=== PATIENT | male | born 1940 | race Caucasian/White ===

== ENCOUNTER 2022-03-08 10:24 | Day surgery (SDC) | payer OTHER ==
[~2022-03-08] VITALS: Ht 177.8 cm; Wt 72.2 kg
[~2022-03-08 10:24] MED LIST: ALBU90OI INH; ASPI81EC PO; KETO.5OPSO BOTHEYES; LEVSOD50 PO; LISI20 PO; OCUFLOX5 M9 BOTHEYES; OMEP20ER PO; PRAV20 PO; PREDNISOLO15 MG/5 ML BOTHEYES; STIOLTO RESPIMAT4 GM INH; TAMS.4ER PO; TERB250 PO
--- NOTE | 2022-03-08 13:17 | NUR ---
03/08/22 1317 AMINA GUTIÉRREZ PT PULSE OX SHOW HR 32, RN CONNECTED 3 L EKG, HR 68
== END 2022-03-08 13:21 | disposition home or self-care (01) ==
LOC: ORSCSDS 10:24
PROVIDERS: Ophthalmology
PROC: 08RJ3JZ Replacement of Right Lens with Synthetic Substitute, Percutaneous Approach (ICD-10-PCS; principal; 2022-03-08 12:00)
DX: H25.13 Age-related nuclear cataract, bilateral (principal); I10 Essential (primary) hypertension; J44.9 Chronic obstructive pulmonary disease, unspecified; Z87.891 Personal history of nicotine dependence; Z79.899 Other long term (current) drug therapy
CPT/HCPCS: 82947; J2001; J2250; J3010; J3301; J7040; V2632

== ENCOUNTER 2022-03-24 10:50 | Day surgery (SDC) | payer OTHER ==
[~2022-03-24] VITALS: Ht 177.8 cm; Wt 70.9 kg
--- NOTE | 2022-03-24 11:19 | NUR ---
03/24/22 1119 Kelly Shelby TETRACAINE INSTILLED IN LEFT EYE AT 1113 PLED[address]T [address]ACED IN LEFT EYE AT 1117. BY [email or web address]
== END 2022-03-24 13:09 | disposition home or self-care (01) ==
LOC: ORSCSDS 10:50
PROVIDERS: Ophthalmology
PROC: 08RK3JZ Replacement of Left Lens with Synthetic Substitute, Percutaneous Approach (ICD-10-PCS; principal; 2022-03-24 12:30)
DX: H25.12 Age-related nuclear cataract, left eye (principal); H52.202 Unspecified astigmatism, left eye; I10 Essential (primary) hypertension; J44.9 Chronic obstructive pulmonary disease, unspecified; G47.33 Obstructive sleep apnea (adult) (pediatric); E03.9 Hypothyroidism, unspecified; K21.9 Gastro-esophageal reflux disease without esophagitis; Z99.81 Dependence on supplemental oxygen; F17.210 Nicotine dependence, cigarettes, uncomplicated; Z79.899 Other long term (current) drug therapy; E78.5 Hyperlipidemia, unspecified
CPT/HCPCS: 82947; J2001; J2250; J2704; J3010; J3301; J7040; V2632

== ENCOUNTER 2023-02-28 15:06 | Emergency (ER) | payer OTHER ==
[~2023-02-28] VITALS: Ht 167.6 cm; Wt 63.5 kg
[2023-02-28 15:51] LABS: BASOPHILS ABSOLUTE AUTO 0.01 K/mm3 (0.00-0.23); BASOPHILS PERCENT AUTO 0 % (0-2); EOSINOPHILS ABSOLUTE AUTO 0.49 K/mm3 (0.00-0.68); EOSINOPHILS PERCENT AUTO 7 % (0-6); Hematocrit 32.2 % (37.0-53.0); Hemoglobin 10.8 g/dL (13.5-17.5); IMMATURE GRAN ABSOLUTE AUTO 0.05 K/mm3 (0.00-0.10); IMMATURE GRAN PERCENT AUTO 1 % (0-1); LYMPHOCYTES ABSOLUTE AUTO 0.75 K/mm3 (0.84-5.20); LYMPHOCYTES PERCENT AUTO 11 % (21-46); MONOCYTES ABSOLUTE AUTO 0.65 K/mm3 (0.16-1.47); MONOCYTES PERCENT AUTO 9 % (4-13); Mean Corpuscular HGB 30.2 pg (26.0-34.0); Mean Corpuscular HGB Conc 33.5 g/dL (31.5-36.5); Mean Corpuscular Volume 90 fL (80-100); Mean Platelet Volume 10.1 fL (9.1-12.4); NEUTROPHILS ABSOLUTE AUTO 4.97 K/mm3 (1.96-9.15); NEUTROPHILS PERCENT AUTO 72 % (41-73); Platelet Count 222 K/mm3 (150-400); RDW Coefficient Variation 11.3 % (11.7-14.2); RDW Standard Deviation 37.2 fL (35.1-46.3); Red Blood Cell Count 3.58 M/mm3 (4.30-5.90); White Blood Cell Count 6.92 K/mm3 (4.00-11.30)
[2023-02-28 16:01] LABS: Albumin, Blood 3.1 g/dL (3.4-5.0); Albumin/Globulin Ratio 0.9 (0.8-1.8); Bilirubin, Total 0.4 mg/dL (0.1-1.0); Bun/Creatinine Ratio 19.2 (12.0-20.0); Calcium, Blood 8.8 mg/dL (8.5-10.1); Creatinine, Blood 0.89 mg/dL (0.60-1.20); Globulin, Blood 3.5 g/dL (2.2-4.0); Potassium, Blood 4.3 mmol/L (3.5-5.5); Total Protein, Blood 6.6 g/dL (6.4-8.2)
[2023-02-28 17:00] VITALS: BP 135/67
== END 2023-02-28 17:44 | disposition home or self-care (01) ==
LOC: ER 15:06
PROVIDERS: Student in an Organized Health Care Education/Training Program
DX: R06.02 Shortness of breath (principal); R07.9 Chest pain, unspecified; R55 Syncope and collapse; K21.9 Gastro-esophageal reflux disease without esophagitis; I10 Essential (primary) hypertension; J44.9 Chronic obstructive pulmonary disease, unspecified; E03.9 Hypothyroidism, unspecified; E78.5 Hyperlipidemia, unspecified; Z87.891 Personal history of nicotine dependence; Z79.890 Hormone replacement therapy; Z79.899 Other long term (current) drug therapy
CPT/HCPCS: 71046; 80053; 84484; 85025; 93005; 93010

== ENCOUNTER 2023-06-16 13:38 | Observation (INO) | payer OTHER ==
[~2023-06-16] VITALS: Ht 180.3 cm; Wt 66.1 kg
[2023-06-16] MEDS ORDERED: TAMS.4ER PO (16:05)
[2023-06-16] MEDS ORDERED: EUTHYROX50 MCG PO (16:05)
[2023-06-16] MEDS ORDERED: DONE5 PO (16:05)
[2023-06-16] MEDS ORDERED: PRAV20 PO (16:05)
[2023-06-16] MEDS ORDERED: LISI20 PO (16:06)
[2023-06-16] MEDS ORDERED: MULVITA PO (16:26)
[2023-06-16 16:32] LABS: BASOPHILS ABSOLUTE AUTO 0.01 K/mm3 (0.00-0.23); BASOPHILS PERCENT AUTO 0 % (0-2); EOSINOPHILS ABSOLUTE AUTO 0.08 K/mm3 (0.00-0.68); EOSINOPHILS PERCENT AUTO 1 % (0-6); Hematocrit 34.4 % (37.0-53.0); Hemoglobin 11.6 g/dL (13.5-17.5); IMMATURE GRAN ABSOLUTE AUTO 0.07 K/mm3 (0.00-0.10); IMMATURE GRAN PERCENT AUTO 1 % (0-1); LYMPHOCYTES ABSOLUTE AUTO 0.87 K/mm3 (0.84-5.20); LYMPHOCYTES PERCENT AUTO 15 % (21-46); MONOCYTES ABSOLUTE AUTO 0.47 K/mm3 (0.16-1.47); MONOCYTES PERCENT AUTO 8 % (4-13); Mean Corpuscular HGB 30.9 pg (26.0-34.0); Mean Corpuscular HGB Conc 33.7 g/dL (31.5-36.5); Mean Corpuscular Volume 92 fL (80-100); Mean Platelet Volume 10.8 fL (9.1-12.4); NEUTROPHILS PERCENT AUTO 74 % (41-73); Platelet Count 127 K/mm3 (150-400); RDW Coefficient Variation 12.2 % (11.7-14.2); RDW Standard Deviation 41.7 fL (35.1-46.3); Red Blood Cell Count 3.75 M/mm3 (4.30-5.90)
[2023-06-16 16:41] LABS: Albumin, Blood 3.8 g/dL (3.4-5.0); Albumin/Globulin Ratio 1.3 (0.8-1.8); Bilirubin, Total 0.3 mg/dL (0.1-1.0); Bun/Creatinine Ratio 20.4 (12.0-20.0); Calcium, Blood 9.5 mg/dL (8.5-10.1); Creatinine, Blood 0.93 mg/dL (0.60-1.20); Potassium, Blood 4.6 mmol/L (3.5-5.5); Total Protein, Blood 6.8 g/dL (6.4-8.2)
[2023-06-16 21:55] VITALS: BP 128/77
[2023-06-17] MEDS ORDERED: DONE5 PO (02:59)
[2023-06-17] MEDS ORDERED: TAMS.4ER PO (03:00)
[2023-06-17 04:31] VITALS: BP 120/83
[2023-06-17 05:12] LABS: BASOPHILS ABSOLUTE AUTO 0.02 K/mm3 (0.00-0.23); BASOPHILS PERCENT AUTO 0 % (0-2); EOSINOPHILS ABSOLUTE AUTO 0.15 K/mm3 (0.00-0.68); EOSINOPHILS PERCENT AUTO 2 % (0-6); Hematocrit 38.7 % (37.0-53.0); IMMATURE GRAN ABSOLUTE AUTO 0.09 K/mm3 (0.00-0.10); IMMATURE GRAN PERCENT AUTO 1 % (0-1); LYMPHOCYTES ABSOLUTE AUTO 1.23 K/mm3 (0.84-5.20); LYMPHOCYTES PERCENT AUTO 14 % (21-46); MONOCYTES ABSOLUTE AUTO 0.69 K/mm3 (0.16-1.47); MONOCYTES PERCENT AUTO 8 % (4-13); Mean Corpuscular HGB 30.6 pg (26.0-34.0); Mean Corpuscular HGB Conc 33.6 g/dL (31.5-36.5); Mean Corpuscular Volume 91 fL (80-100); Mean Platelet Volume 11.3 fL (9.1-12.4); NEUTROPHILS ABSOLUTE AUTO 6.39 K/mm3 (1.96-9.15); NEUTROPHILS PERCENT AUTO 74 % (41-73); Platelet Count 142 K/mm3 (150-400); RDW Coefficient Variation 12.4 % (11.7-14.2); RDW Standard Deviation 40.7 fL (35.1-46.3); Red Blood Cell Count 4.25 M/mm3 (4.30-5.90); White Blood Cell Count 8.57 K/mm3 (4.00-11.30)
[2023-06-17 06:06] LABS: Albumin, Blood 3.8 g/dL (3.4-5.0); Albumin/Globulin Ratio 1.2 (0.8-1.8); Bilirubin, Total 0.4 mg/dL (0.1-1.0); Bun/Creatinine Ratio 18.4 (12.0-20.0); Calcium, Blood 9.3 mg/dL (8.5-10.1); Creatinine, Blood 0.92 mg/dL (0.60-1.20); Globulin, Blood 3.1 g/dL (2.2-4.0); Potassium, Blood 4.5 mmol/L (3.5-5.5); Total Protein, Blood 6.9 g/dL (6.4-8.2)
--- NOTE | 2023-06-17 06:40 | NUR ---
PATIENT SINUS SHAHAB ON TELEMETRY. LOW 50'S WHILE AWAKE AND HAS DROPPED DOWN TO LOW 38 BPM AT TIMES. PATIENT AWARE THAT HEART RATE RUNS LOW. ASYMPTOMATIC WITH BRADYCARDIA. DENIES ANY CHEST PAIN OR PRESSURE SINCE ADMISSION.
[2023-06-17 07:34] VITALS: BP 126/76
[2023-06-17 15:10] VITALS: BP 141/77
--- NOTE | 2023-06-17 15:59 | NUR ---
SHIFT SUMMARY Pt remains A&O x3 this shift. Denies pain. VSS. Ambulating independently in room. Continent of B&B. 4L NC on at baseline. NPO after MN and no caffiene after dinner tonight to complete stress test in am. No needs id or verbalized at this time. Will continue to monitor this shift.
[2023-06-17 19:41] VITALS: BP 159/93
--- NOTE | 2023-06-17 23:11 | NUR ---
NURSE NOTE VSS. ALERT AND ORIENTED. UP AD ISMAEL. MED TELE IN USE. SINUS SHAHAB. DENIES DISTRESS. WILL BE NPO AT 2400 FOR TEST IN AM. CALL LIGHT IN REACH.
--- NOTE | 2023-06-18 03:38 | NUR ---
THERAPEUTIC CONSULTANT SUMMARY VSS. MED TELE SINUS SHAHAB IN THE 50'S. HAS BEEN NPO SINCE 0000 FOR CARDIAC TEST THIS AM. ON 02 AT 4L/MIN PER NC. UP AD ISMAEL. HAS BEEN RESETING QUIETLY WITH FEW INTERRUPTIONS. HOB ELEVATED. CALL LIGHT IN REACH. WILL CONTINUE TO MONITOR. NO C/O CHEST PAIN OF THIS WRITING.
[2023-06-18 03:57] VITALS: BP 149/77
[2023-06-18 07:25] VITALS: BP 140/79
[2023-06-18] MEDS ORDERED: DOXY100 PO (14:54)
[2023-06-18] MEDS ORDERED: CARV3.125 PO (14:55)
--- NOTE | 2023-06-18 15:23 | NUR ---
SHIFT/DC SUMMARY Pt remains A&OX3 this shift. Denies pain. VSS. Ambulating independently. Resp even nonlabored on baseline 4L NC. Tolerating diet. Voiding without difficulty. All discharge instructions reviewed with return verbal understanding. Pt aware Rx [facility].
== END 2023-06-18 15:50 | disposition home or self-care (01) ==
LOC: ER 13:38 → MEDS 13:39
PROVIDERS: Emergency Medicine; ADMIT Internal Medicine
DX: J96.21 Acute and chronic respiratory failure with hypoxia (principal); J43.9 Emphysema, unspecified; I35.0 Nonrheumatic aortic (valve) stenosis; R07.89 Other chest pain; I27.20 Pulmonary hypertension, unspecified; I11.0 Hypertensive heart disease with heart failure; I50.32 Chronic diastolic (congestive) heart failure; K21.9 Gastro-esophageal reflux disease without esophagitis; E03.9 Hypothyroidism, unspecified; E78.5 Hyperlipidemia, unspecified; Z87.891 Personal history of nicotine dependence
CPT/HCPCS: 36415; 71045; 71260; 78452; 80053; 83880; 84484; 85025; 85379; 93005; 93010; 93017; 93306; 94760; 96365; 96372; 99285-25; A9270; A9500; G0378; J0280; J0456; J1650; J2785; J7050; Q9967